=== PATIENT | male | born 1950 | race Caucasian/White ===

== ENCOUNTER → 2016-05-26 | Outpatient (REF) | payer MEDICARE, OTHER ==
[~2016-05-26] MED LIST: ASPI81TA45 PO; LISI20TA3 PO; PROT1TAB2 PO; SIMV10TA2 PO
== END ==
LOC: M LAB REF 12:31
PROVIDERS: ATTEND Internal Medicine
DX: M10.9 Gout, unspecified (principal)

== ENCOUNTER → 2016-09-09 | Outpatient (REF) | payer MEDICARE, OTHER | LOC: M LAB REF 12:33 | PROVIDERS: ATTEND Internal Medicine | DX: M10.9 Gout, unspecified (principal) ==

== ENCOUNTER → 2017-06-02 | Outpatient (REF) | payer MEDICARE, OTHER ==
[2017-06-02 13:36] LABS: VITAMIN B12 LEVEL 493 PG/ML (247-911)
== END ==
LOC: M LAB REF 12:20
DX: R20.2 Paresthesia of skin (principal)
CPT/HCPCS: 82607

== ENCOUNTER → 2017-09-07 | Outpatient (REF) | payer MEDICARE, OTHER ==
[2017-09-07 12:54] LABS: URIC ACID 4.6 MG/DL (3.5-7.2)
== END ==
LOC: M LAB REF 12:03
DX: M10.9 Gout, unspecified (principal)
CPT/HCPCS: 84550

== ENCOUNTER → 2017-12-15 | Outpatient (REF) | payer MEDICARE, OTHER ==
[2017-12-15 14:13] LABS: URIC ACID 4.7 MG/DL (3.5-7.2)
== END ==
LOC: M LAB REF 12:58
DX: M10.9 Gout, unspecified (principal)
CPT/HCPCS: 84550

== ENCOUNTER → 2018-04-12 | Outpatient (REF) | payer MEDICARE, OTHER ==
[2018-04-12 15:17] LABS: PHOSPHORUS LEVEL 3.8 MG/DL (2.5-4.9); RHEUMATOID FACTOR QUANT < 10.0 IU/ML (<15.0)
[2018-04-15 08:07] LABS: ANTINUCLEAR ANTIBODIES DIRECT Negative (Negative); SJOGREN'S ANTI SS-A <0.2 AI (0.0-0.9); SJOGREN'S ANTI SS-B <0.2 AI (0.0-0.9)
== END ==
LOC: M LAB REF 13:43
PROVIDERS: ATTEND Internal Medicine
DX: L40.9 Psoriasis, unspecified (principal)

== ENCOUNTER → 2018-10-31 | Outpatient (REF) | payer MEDICARE, OTHER ==
[~2018-10-31] MED LIST changes: +LISI20TA20 PO; -LISI20TA3 PO
[2018-11-01 17:56] LABS: URIC ACID 6.4 MG/DL (3.5-7.2)
[2018-11-02 10:31] LABS: VITAMIN B12 LEVEL 631 PG/ML
[2018-11-02 10:32] LABS: FOLATE > 24.0 NG/ML
== END ==
LOC: M LAB REF 17:20
PROVIDERS: ATTEND Internal Medicine
DX: M10.9 Gout, unspecified (principal)

== ENCOUNTER → 2019-02-28 | Outpatient (REF) | payer MEDICARE, OTHER ==
[~2019-02-28] MED LIST changes: -SIMV10TA2 PO; +SIMV10TA21 PO
[2019-03-04 00:08] LABS: Lyme Disease IgG/IgM Antibodie <0.91 ISR (0.00-0.90); Lyme Disease IgM Ab Quantitati <0.80 index (0.00-0.79)
== END ==
LOC: M LAB REF 13:14
PROVIDERS: ATTEND Internal Medicine
DX: M10.9 Gout, unspecified (principal)

== ENCOUNTER → 2020-01-30 | Outpatient (REF) | payer MEDICARE, OTHER ==
[2020-02-01 15:12] LABS: Lyme Disease IgG Ab 18 kDa Ban Absent (.); Lyme Disease IgG Ab 23 kDa Ban Absent (.); Lyme Disease IgG Ab 28 kDa Ban Absent (.); Lyme Disease IgG Ab 30 kDa Ban Absent (.); Lyme Disease IgG Ab 39 kDa Ban Present (.); Lyme Disease IgG Ab 41 kDa Ban Present (.); Lyme Disease IgG Ab 45 kDa Ban Present (.); Lyme Disease IgG Ab 58 kDa Ban Absent (.); Lyme Disease IgG Ab 66 kDa Ban Present (.); Lyme Disease IgG Ab 93 kDa Ban Absent (.); Lyme Disease IgG West Blot Int Negative (.); Lyme Disease IgG/IgM Antibodie 1.26 ISR (0.00-0.90); Lyme Disease IgM Ab 23 kDa Ban Absent (.); Lyme Disease IgM Ab 39 kDa Ban Absent (.); Lyme Disease IgM Ab 41 kDa Ban Present (.); Lyme Disease IgM Ab Quantitati 11.14 index (0.00-0.79); Lyme Disease IgM West Blot Int Negative (.)
== END ==
LOC: M LAB REF 12:04
PROVIDERS: ATTEND Internal Medicine
DX: Z11.59 Encounter for screening for other viral diseases (principal); W57.XXXD Bitten or stung by nonvenomous insect and other nonvenomous arthropods, subsequent encounter

== ENCOUNTER → 2020-05-08 | Outpatient (REF) | payer MEDICARE, OTHER | LOC: M LAB REF 11:44 | PROVIDERS: ATTEND Internal Medicine | DX: M10.9 Gout, unspecified (principal) ==

== ENCOUNTER → 2021-07-16 | Outpatient (REF) | payer MEDICARE, OTHER ==
[~2021-07-16] MED LIST changes: -LISI20TA20 PO; +LISI20TA37 PO
== END ==
LOC: M LAB REF 12:30
PROVIDERS: ATTEND Internal Medicine
DX: M79.18 Myalgia, other site (principal)

== ENCOUNTER → 2022-01-15 | Outpatient (REF) | payer MEDICARE, OTHER ==
[2022-01-15 18:52] LABS: FERRITIN 433 NG/ML (26-388)
[2022-01-15 20:04] LABS: HEPATITIS B SURFACE ANTIGEN NEGATIVE (NEGATIVE)
[2022-01-15 20:22] LABS: HEPATITIS B CORE ANTIBODY IGM NEGATIVE (NEGATIVE); HEPATITIS C VIRUS ABY INDEX < 0.0 INDEX (<0.8)
== END ==
LOC: M LAB REF 16:40
PROVIDERS: ATTEND Internal Medicine
DX: K76.0 Fatty (change of) liver, not elsewhere classified (principal)

== ENCOUNTER → 2022-01-21 | Outpatient (REF) | payer MEDICARE, OTHER ==
[2022-01-21 17:55] LABS: PERCENT SATURATION 38.6 % (19.7-50.0)
== END ==
LOC: M LAB REF 16:16
PROVIDERS: ATTEND Internal Medicine
DX: K76.0 Fatty (change of) liver, not elsewhere classified (principal)

== ENCOUNTER → 2022-01-27 | Outpatient (REF) | payer MEDICARE, OTHER | LOC: M LAB REF 16:23 | PROVIDERS: ATTEND Internal Medicine | DX: K76.0 Fatty (change of) liver, not elsewhere classified (principal) ==

== ENCOUNTER → 2022-06-11 | Outpatient (REF) | payer MEDICARE, OTHER | LOC: M LAB REF 11:17 | PROVIDERS: ATTEND Internal Medicine | DX: K76.0 Fatty (change of) liver, not elsewhere classified (principal); F10.99 Alcohol use, unspecified with unspecified alcohol-induced disorder ==

== ENCOUNTER 2022-09-09 09:23 | Day surgery (SDC) | payer MEDICARE, OTHER ==
[~2022-09-09] VITALS: Ht 177.8 cm; Wt 85.5 kg
[~2022-09-09 09:23] MED LIST changes: +ATOR1TAB19 PO; +LOSA100T46 PO; +NS 1,000 ML IV ONE
[2022-09-09] MEDS ORDERED: propofoL 200 MG/20 ML VIAL As Ordered ONE ×2 (11:08→11:19)
[2022-09-09 11:32] VITALS: TEMP 97.4
[2022-09-09 11:50] VITALS: BP 128/73; O2SAT 97
== END 2022-09-09 12:05 | disposition home or self-care (01) ==
LOC: M OPP 09:23
PROVIDERS: ATTEND Internal Medicine Gastroenterology
DX: Z12.11 Encounter for screening for malignant neoplasm of colon (principal); D12.0 Benign neoplasm of cecum; D12.3 Benign neoplasm of transverse colon; K57.30 Diverticulosis of large intestine without perforation or abscess without bleeding; Z79.02 Long term (current) use of antithrombotics/antiplatelets; Z79.899 Other long term (current) drug therapy

== ENCOUNTER → 2022-09-11 | Outpatient (REF) | payer MEDICARE, OTHER ==
[~2022-09-11] MED LIST changes: -NS 1,000 ML IV ONE
[2022-09-11 12:44] LABS: INR 0.96; PARTIAL THROMBOPLASTIN TIME 29.5 SECONDS (24.8-34.2)
== END ==
LOC: M LAB REF 12:11
PROVIDERS: ATTEND Internal Medicine
DX: K76.0 Fatty (change of) liver, not elsewhere classified (principal)

== ENCOUNTER → 2022-11-10 | Outpatient (CLI) | payer MEDICARE, OTHER | LOC: M SOG 08:54 | PROVIDERS: ATTEND Orthopaedic Surgery | DX: M47.816 Spondylosis without myelopathy or radiculopathy, lumbar region (principal); M46.96 Unspecified inflammatory spondylopathy, lumbar region; M54.50 Low back pain, unspecified ==

== ENCOUNTER → 2022-11-14 | Outpatient (CLI) | payer MEDICARE, OTHER | LOC: M RAD 08:07 | PROVIDERS: ATTEND Orthopaedic Surgery | DX: M54.50 Low back pain, unspecified (principal) ==

== ENCOUNTER → 2023-10-21 | Outpatient (REF) | payer MEDICARE, OTHER ==
[2023-10-21 14:38] LABS: FERRITIN 289.9 NG/ML (10.5-307.3)
== END ==
LOC: M LAB REF 12:37
PROVIDERS: ATTEND Internal Medicine
DX: M10.9 Gout, unspecified (principal); E83.110 Hereditary hemochromatosis

== ENCOUNTER → 2024-02-01 | Outpatient (REF) | payer MEDICARE, OTHER | LOC: M LAB REF 13:00 | PROVIDERS: ATTEND Internal Medicine | DX: Z11.59 Encounter for screening for other viral diseases (principal) ==

== ENCOUNTER → 2024-10-06 | Outpatient (REF) | payer MEDICARE, OTHER | LOC: M LAB REF 13:13 | PROVIDERS: ATTEND Internal Medicine | DX: A69.20 Lyme disease, unspecified (principal) ==

== ENCOUNTER → 2024-12-05 | Outpatient (REF) | payer MEDICARE, OTHER | LOC: M LAB REF 15:04 | PROVIDERS: ATTEND Internal Medicine | DX: M10.9 Gout, unspecified (principal); M79.675 Pain in left toe(s) ==